=== PATIENT | male | born 1980 | race Caucasian/White ===

== ENCOUNTER 2020-10-08 17:14 | Emergency (ER) | payer OTHER ==
[~2020-10-08] VITALS: Ht 195.6 cm; Wt 136.4 kg
[2020-10-08 19:22] VITALS: BP 131/86; PULSE 66; TEMP 98.7
[2020-10-12] MEDS ORDERED: NORCO 325 MG-51 TAB PO ×2 (15:00)
== END 2020-10-08 19:22 | disposition home or self-care (01) ==
LOC: COL.ER 17:14 → EDBD 17:14 → COL.ER 19:22
DX: H60.91 Unspecified otitis externa, right ear (principal)